=== PATIENT | female | born 1995 | race Caucasian/White ===

== ENCOUNTER 2020-06-08 13:30 | Outpatient (REF) | payer OTHER, SELFPAY ==
[2020-06-08 13:48] LABS: COVID-19 Test Negative (Negative); IDNOW Serial# 55D5AD1C
== END 2020-06-08 13:31 | disposition home or self-care (01) ==
LOC: HO.EMPCOV 13:30
PROVIDERS: Visit Provider Internal Medicine
DX: Z20.822 Contact with and (suspected) exposure to COVID-19 (principal)
CPT/HCPCS: 36415; 87635; C9803

== ENCOUNTER 2020-07-15 07:50 | Outpatient (REF) | payer OTHER, SELFPAY ==
[2020-07-15 08:10] LABS: COVID-19 Test Negative (Negative); IDNOW Serial# 55D5AD1C
== END 2020-07-15 07:51 | disposition home or self-care (01) ==
LOC: HO.EMPCOV 07:50
PROVIDERS: Visit Provider Internal Medicine
DX: Z20.822 Contact with and (suspected) exposure to COVID-19 (principal)
CPT/HCPCS: 36415; 87635; C9803